=== PATIENT | female | born 1985 | race Caucasian/White ===

== ENCOUNTER 2018-06-07 05:26 | Inpatient (IN) | payer MEDICAID, SELFPAY ==
[2018-06-07 05:50] VITALS: BMI 27.6
[2018-06-07] MEDS: Lactated Ringer's 1,000 ML IV SCH ×3 (06:30→18:27)
[2018-06-07 06:42] LABS: BASO % 1.2 % (0.0-2.0); HEMOGLOBIN 11.7 g/dL (12.0-16.0); LYMPH # 1.2 K/uL (1.0-4.3); LYMPH % 38.8 % (20.0-40.0); MEAN CELL VOLUME 80.5 fl (81.0-99.0); MEAN CORPUSCULAR HEMOGLOBIN 26.8 pg (27.0-31.0); MEAN CORPUSCULAR HGB CONC 33.3 g/dL (33.0-37.0); MEAN PLATELET VOLUME 9.4 fl (7.2-11.7); MONO # 0.3 K/uL (0.0-0.8); MONO % 8.6 % (0.0-10.0); NEUT # 1.6 K/uL (1.8-7.0); NEUT % 50.4 % (50.0-75.0); NRBC % 0.1 % (0.0-0.0); RBC 4.35 Mil/uL (3.80-5.20); RED CELL DISTRIBUTION WIDTH 14.5 % (11.5-14.5); WHITE BLOOD COUNT 3.2 K/uL (4.8-10.8)
[2018-06-07] MEDS ORDERED: Oxytocin 30 UNIT 30 UNITS/500 ML BAG IV ONE (07:29)
[2018-06-07] MEDS ORDERED: OXYTOCIN/0.9 % NS 20 UNIT/1,000 ML BAG IV SCH ×2 (07:30→13:42)
[2018-06-07] MEDS ORDERED: Lactated Ringer's 1,000 ML IV ONE (08:04)
[2018-06-07] MEDS ORDERED: ceFAZolin 2 GM in Sodium Chloride 0.9% 100 ML IVPB ONE (08:15)
[2018-06-07] MEDS ORDERED: ePHEDrine 50 mg/ml Inj ONE (08:56)
[2018-06-07] MEDS ORDERED: Phenylephrine 10 mg/ml Inj ONE (08:56)
[2018-06-07] MEDS ORDERED: Morphine 1 mg/ml preservative-free Inj(Duramorph) ONE (08:56)
[2018-06-07] MEDS ORDERED: Atropine 0.4 mg/ml Inj (1 mL) ONE (08:57)
--- NOTE | 2018-06-07 09:20 | OBADHP ---
Datetime: 06/07/2018 08:33 Admit Comment, IP Provider: HPI: Anna is a 33 yo with a history of a previous who pr esents today for a scheduled repeat . Her dating was obtained by an LMP of 09/06/17 with no US performed before 22 weeks for dating confirmation. First was done in [place] under general anesthesia. Only complications of the are maternal history of midline low back pain with s evere leg pain and weakness early in the that has since resolved. ROS: denies vaginal bleeding, ctx or LOF. Good movement. History G1: 2014, primary for breech presentation in [place] G2: current pregancy Ultrasounds Initial US was 03/10/18, question of imperforate anus that resolved on follow-up US. Last US 05/13 w ith cephalic presentation, EFW not reported PMH Chornic low back pain PSH Prior Social History Lives at home with her and 1 child. Denies tobacco, alcohol or drug use during the pregnan cy Family History Not significant Medications PNV Allergies NKDA OBJECTIVE See PE section labs: A+, initial HIV/RPR nonreactive, Hep B neg, GBS unknown, GTT WNL, Rubella immune Assessment/Plan: 33yo at 39.1 here for elective repeat . After initial discussion wi th the pation about anesthesia options (she had general anesthesia is [place] for her first ) she was consented for spinal anesthesia. Risks/benefits of the repeat reviewed, all questio ns answered and consent forms were signed. Monalisa Go MD OB Fellow Addendum by Dr. Best: I have evalauted the patient independently and I agree with the above Extremities - PN: Normal Abdomen - PN: Normal Lungs - PN: Normal Heart - PN: Normal HEENT - PN: Normal General - PN: Normal IP Fetus A Comments: Reactive NST with occasional variables FHR - Baseline A Provider: 155 Gestation - Est Wks by US: 39.1 Vital Signs Provider: Reviewed; Within Normal Limits IP Chief Complaint: Scheduled Section NICHD Variability Prov Fetus A: Moderate 6-25bpm NICHD Accel Fetus A IP Provider: [id number] NICHD Decel Fetus A IP Provider: Variable Dilatation, Provider: TOPHER EGRyan AdmitDate IP: 39.1 IP Adm Impression: Term, intrauterine IP Admit Plan: Admit to unit; Initiate Section protocol
--- NOTE | 2018-06-07 10:28 | OBDS ---
DELIVERY PERSONNEL Delivery Doctor: Michael Best MD Office Auditor: Nancy Tam RN Anesthesiologist: Noel Nation MD Resident: Dr. Yanez, OB Fellow MATERNAL INFORMATION Delivery Anesthesia: None Medications in Delivery: Pitocin 30 mu/500 mL LR Estimated Blood Loss (ml): 800 Placenta Cultured: No Maternal Complications: None Provider Comments: Surgeon: Dr. Best Slat Grader: Dr. Kylah Go Pre-operative Dx: Repeat , term Surgery: Repeat Post-op Dx: Same Findings: Live female infant, cephalic, 6lbs 15oz, 9/9, clear fluid, grossly nml tubes, ovaries, p lacenta, uterus Anesthesia: spinal by Dr. Nation EBL: 800mL UO: 200mL Total input: 1800mL Complications: None Condition: Stable Pathology: Placenta, cord blood LABOR SUMMARY EDC: 06/13/2018 00:00 No. Babies in Womb: 1 Attempted: No Labor Anesthesia: None LABOR INFORMATION Oxytocin: N/A Group B Beta Strep: Done, Result Unknown Antibiotics # of Doses: 1 Antibiotics Time of Last Dose: 934 Steroids Given: None Reason Steroids Not Administered: Not Applicable MEMBRANES Membranes Rupture Method: Spontaneous Rupture of Membranes: 06/07/2018 09:42 Length of Rupture (hrs): 0.00 Amniotic Fluid Color: Clear Amniotic Fluid Amount: Moderate Amniotic Fluid Odor: None STAGES OF LABOR Stage 3 hrs: 0 Stage 3 min: 1 CSECTION DELIVERY Primary Indication: Repeat Elective CSection Urgency: Elective CSection Incidence: Repeat Labor: No Labor Elective: Elective CSection Incision: Lower Uterine Transverse BABY A INFORMATION Infant Delivery Date/Time: 06/07/2018 09:42 Method of Delivery: Born in Route : No : N/A Forceps: N/A Vacuum Extraction: N/A Shoulder Dystocia : No SHOULDER DYSTOCIA BABY A Infant Delivery Date/Time: 06/07/2018 09:42 PRESENTATION/POSITION BABY A Presentation: Cephalic Cephalic Presentation: Vertex Breech Presentation: N/A PLACENTA INFORMATION BABY A Placenta Delivery Time : 06/07/2018 09:43 Placenta Method of Delivery: Expressed Placenta Status: Delivered SCORES BABY A Heart Rate 1 min: >100 bpm Resp Effort 1 min: Good Cry Reflex Irritability 1 min: Cough or Sneeze or Pulls Away Muscle Tone 1 min: Active Motion Color 1 min: Body [place], Extremities Blue Resuscitation Effort 1 min: N/A SCORE 1 MIN: 9 Heart Rate 5 min: >100 bpm Resp Effort 5 min: Good Cry Reflex Irritability 5 min: Cough or Sneeze or Pulls Away Muscle Tone 5 min: Active Motion Color 5 min: Body [place], Extremities Blue Resuscitation Effort 5 min: N/A SCORE 5 MIN: 9 INFORMATION BABY A Gestational Age at Delivery: 39.1 Gestational Status: Term Infant Outcome : Liveborn Condition : Stable Sex: Female WEIGHT/LENGTH BABY A Birthweight (gms): 3150 Weight (lb): 6 Infant Weight (oz): 15 CORD INFORMATION BABY A No. Cord Vessels: 3 Nuchal Cord : N/A Cord Blood Taken: Yes Suction: Mouth; Nose
[2018-06-07] MEDS ORDERED: Acetaminophen-Codeine 300/30 mg Tab PO PRN ×2 (10:42→13:42)
[2018-06-07] MEDS ORDERED: Oxycodone/Acetaminophen 5/325 mg Tab PO PRN (10:42)
[2018-06-07] MEDS ORDERED: Lactated Ringer's 1,000 ML IV SCH (10:45)
[2018-06-07] MEDS ORDERED: Simethicone 80 mg Chewtab PO SCH (16:00)
[2018-06-07] MEDS: Simethicone 80 mg Chewtab PO SCH ×2 (18:36→21:25)
--- NOTE | 2018-06-07 22:01 | OP ---
PROCEDURE DATE: 06/07/2018 SURGEON: Ruth Best MD TRANSACTION MANAGER: Dr. Pedro Go, OB Fellow PREOPERATIVE DIAGNOSES: 1. Previous section x1. 2. Term . POSTOPERATIVE DIAGNOSES: 1. Previous section x1. 2. Term . PROCEDURE: Repeat low-transverse section. FINDINGS: Live female , 6 pounds 15 ounces, cephalic, 9 and 9 Apgars, clear fluid. Grossly normal tubes, ovaries, placenta and uterus. ESTIMATED BLOOD LOSS: 800 mL. ANESTHESIA: Spinal. ANESTHESIOLOGIST: Lazaro Nation MD URINE OUTPUT: 200 mL. TOTAL FLUID INPUT: 800 mL. COMPLICATIONS: None. CONDITION: Stable. PATHOLOGY SPECIMENS: Placenta and cord blood. INDICATION: This is a 33-year-old G2, P1-0-0-1 at 39 plus weeks for scheduled repeat . The patient was advised the risks and benefits of procedure including risk of bleeding, infection, damage to surrounding organs such as bowel, bladder, ureter, and uterus. The patient verbalized understanding and signed informed consent. DESCRIPTION OF PROCEDURE: The patient was taken to the OR. Ancef was given preoperatively. Anesthesia was placed bilaterally. The patient was prepped and draped in a normal sterile fashion in dorsal supine position with a leftward tilt. A Pfannenstiel skin incision was made through the previous incision with a scalpel and carried through to the underlying layer of fascia with the scalpel and Bovie. The fascia was incised in the midline. The incision was extended laterally with the Bovie. We used Josette clamps to tent up the superior aspect of this incision which we dissected off the underlying pyramidalis muscles with the Bovie. In a similar fashion, we tented up the superior aspect of this incision which we dissected off the underlying rectus abdominis muscles with the Bovie. The muscles were tented up at the midline, and the peritoneum was entered with Metzenbaum scissors. The incision was extended superiorly and inferiorly with good visualization of all underlying organs. A bladder flap was created with the Metzenbaum scissors digitally. The uterine incision was incised in a transverse fashion with the scalpel. The uterine cavity was entered. Clear fluid was noted. The uterine incision was extended with bandage scissors. The was delivered in cephalic presentation atraumatically followed by shoulders and rest of the infant atraumatically. Cord was clamped and cut. Infant was handed off to awaiting pediatric team. The uterus was exteriorized. The placenta was removed manually. The uterus was cleared of all clots. The uterine incision was repaired with 0 Vicryl stitch and second imbricating layer was done with 0 Monocryl. The uterus was returned to the abdomen. Gutters were cleared of all clots. Hysterotomy site again was re-inspected and found to be hemostatic. The peritoneum was closed with 2-0 Monocryl, and the muscles were reapproximated with the same stitch. The fascia was closed with a 0 Vicryl. Small bleeders on the subcutaneous fat were cauterized with the Bovie and then reapproximated with a plain gut suture. Skin was closed with 4-0 Monocryl. Sponge, lap and needle counts were correct x4. The patient was taken to the recovery room in stable condition. There were no other complications. Ruth Best MD
[2018-06-08] MEDS: Lactated Ringer's 1,000 ML IV SCH (00:57)
[2018-06-08] MEDS: Simethicone 80 mg Chewtab PO SCH ×4 (05:52→21:21)
[2018-06-08 06:30] LABS: BASO % 0.3 % (0.0-2.0); EOS % 0.5 % (0.0-4.0); HEMOGLOBIN 11.4 g/dL (12.0-16.0); LYMPH # 0.8 K/uL (1.0-4.3); LYMPH % 11.7 % (20.0-40.0); MEAN CELL VOLUME 80.4 fl (81.0-99.0); MEAN CORPUSCULAR HGB CONC 33.6 g/dL (33.0-37.0); MEAN PLATELET VOLUME 9.5 fl (7.2-11.7); MONO # 0.4 K/uL (0.0-0.8); MONO % 5.7 % (0.0-10.0); NEUT # 5.9 K/uL (1.8-7.0); NEUT % 81.8 % (50.0-75.0); RBC 4.23 Mil/uL (3.80-5.20); RED CELL DISTRIBUTION WIDTH 14.1 % (11.5-14.5); WHITE BLOOD COUNT 7.2 K/uL (4.8-10.8)
[2018-06-08] MEDS: Multivitamin With Minerals Tab PO SCH (08:36)
[2018-06-08] MEDS: Oxycodone/Acetaminophen 5/325 mg Tab PO PRN ×2 (08:36→20:07)
[2018-06-08] MEDS ORDERED: Multivitamin With Minerals Tab PO SCH (09:00)
--- NOTE | 2018-06-08 13:54 | OBPPN ---
Datetime: 06/08/2018 06:20 PP Pain Prov: Within normal limits PP Nausea Prov: Denies PP Flatus Prov: No PP BM Prov: No PP Breasts Prov: Not Done PP Heart Prov: Normal PP Lungs Prov: Normal PP Abdomen/Uterus Prov: Normal PP Lochia Prov: Normal PP Vulva/Perineum Prov: Not Done PP CVA Tenderness Prov: Normal PP Extremities Prov: Normal PP C/S Incision Prov: Normal PP Progress Prov: Normal PP Impression Prov: Normal progression PP Plan Prov: Continue present management PP Progress Note Prov: Patient seen and examined at the bedside in morning. Patient lying comfortabl y in bed. States she has not been passing flatus or having BM. Tolerating PO diet. Lochia like menses. Patient without any difficulties. VSS, Afebrile Gen: NAD Lungs: CTA bilaterally CVS: RRR, S1, S2 WNL, no murmurs. Abd: ND, +BS, appropriated tenderness, fundus firm at umbilical level. Ext: No edema, negative calf tenderness. Neuro/psych: AAOx3 A/P: 33 y/o female 39.1 wk GA ppd1 s/p -Encourage ambulation -Diet as tolerated -Ibuprofen 600 mg for pain mgmt -Senakot and colace for constipation -anticipated discharge 06/10/2018 Vee Riley PGY-I OB Hospitalist on-call. On rounds, I saw and examined this patient. Agree wit PGY1 note. YUKO H/H/ Vital Signs Provider PP: Reviewed; Within Normal Limits
[2018-06-09] MEDS: Simethicone 80 mg Chewtab PO SCH ×4 (03:26→21:10)
[2018-06-09] MEDS: Multivitamin With Minerals Tab PO SCH (09:20)
--- NOTE | 2018-06-09 13:14 | OBPPN ---
Datetime: 06/09/2018 06:00 PP Pain Prov: Within normal limits PP Nausea Prov: Denies PP Flatus Prov: Yes PP BM Prov: No PP Breasts Prov: Not Done PP Heart Prov: Normal PP Lungs Prov: Normal PP Abdomen/Uterus Prov: Normal PP Lochia Prov: Normal PP Vulva/Perineum Prov: Not Done PP CVA Tenderness Prov: Normal PP Extremities Prov: Normal PP C/S Incision Prov: Normal PP Progress Prov: Normal PP Comments Phys Exam Prov: hgb 11.4 plate 127 PP Impression Prov: Normal progression PP Plan Prov: Continue present management PP Progress Note Prov: Patient seen and examined at the bedside in morning. Patient lying comfortabl y in bed. States reports passing flatus and having BM.Tolerating PO diet. Lochia like menses. Patien t without any difficulties. VSS, Afebrile Gen: NAD Lungs: CTA bilaterally CVS: RRR, S1, S2 WNL, no murmurs. Abd: ND, +BS, appropriated tenderness, fundus firm at umbilical level. incision intact. Ext: No edema, negative calf tenderness. Neuro/psych: AAOx3 A/P: 33 y/o female 39.1 wk GA ppd2 s/p -Encourage ambulation -Diet as tolerated -Ibuprofen 600 mg for pain mgmt -Senakot and colace for constipation -anticipated discharge 06/10/2018 Vee Riley PGY-I OB attending addendum: Patient seen and examined by me. She denies bowel movement. Plan Rx Senokot S Ambulate. Vital Signs Provider PP: Reviewed
[2018-06-09] MEDS ORDERED: Docusate-Senna 50 mg-8.6 mg Tab PO SCH (22:00)
[2018-06-10] MEDS: Simethicone 80 mg Chewtab PO SCH ×2 (04:21→09:55)
[2018-06-10] MEDS: Multivitamin With Minerals Tab PO SCH (09:55)
--- NOTE | 2018-06-10 10:48 | OBDCSUM ---
Datetime: 06/10/2018 10:24 Discharged to, Provider: Home Follow up at, Provider: OB Disch Instr Activity: Normal activity; May be up to bathroom; May be up for meals; May Shower Disch Instr Diet: Regular Discharge Instructions, Provider: Routine instructions given Discharge Time: 06/10/2018 10:25 Follow up in weeks, Provider: 1-2 weeks incision check , 4-6 weeks for post check Disch Referrals: None Contraception discussed, Prov: Yes Disch Activity Restrictions: Minimize stair-climbing; No sexual activity; Nothing in vagina - Interc ourse, tampons, douche Discharge Comment, Provider: Attending addendum: I saw and examined the patient myself this morning at bedside. I reviewed the resident note above and agree with findings and management. Contraception after Delivery: Foam/Condoms Datetime: 06/09/2018 23:28 Discharged to, Provider: Home Follow up at, Provider: [facility] Disch Instr Diet: Regular Discharge Instructions, Provider: Routine instructions given Discharge Diagnosis, Provider: Term Delivered Follow up in weeks, Provider: 4-6 weeks Disch Referrals: None Contraception discussed, Prov: Yes Disch Activity Restrictions: No lifting; No sexual activity; Nothing in vagina - [place], tampon s, douche Discharge Comment, Provider: DOA: 06/07/2018 EGA: 39.1 Dx: Term intrauterine , scheduled repeat Term 33 y/o f presented at 39.1 weeks GA for scheduled repeat L_D summary: Repeat , EBL: 800mL. No complications. DOL: 06/07/18 9:42 06/06 Weight 3150 No serious complications during PP/Post op Lochia like menses, mild pain, controllled w/ rx Rubella Immune, tdab unknown Blood type A+ CBC pp H/H 11.4/34.0 Discharge date 06/10/2018 Time: 12:40 Discharge instructions: -encourage -ibuprofen for pain PRN -Senokot 17.2mg qHs for constipation -ambulate as tolerated -patient scheduled for follow up w/ [facility] in 4-6 weeks Vee Riley PGY-I Contraception after Delivery: Not Planning to Use
--- NOTE | 2018-06-10 10:48 | OBPPN ---
Datetime: 06/10/2018 05:00 PP Pain Prov: Within normal limits PP Nausea Prov: Denies PP Flatus Prov: Yes PP BM Prov: Yes PP Breasts Prov: Not Done PP Heart Prov: Normal PP Lungs Prov: Normal PP Abdomen/Uterus Prov: Normal PP Lochia Prov: Normal PP Vulva/Perineum Prov: Not Done PP CVA Tenderness Prov: Normal PP Extremities Prov: Normal PP C/S Incision Prov: Normal PP Progress Prov: Normal PP Impression Prov: Normal progression PP Plan Prov: Continue present management; Discharge PP Progress Note Prov: Patient seen and examined at the bedside in morning. Patient lying comfortabl y in bed. States reports passing flatus and having BM.Tolerating PO diet. Lochia like menses. Patien t without any difficulties. VSS, Afebrile Gen: NAD Lungs: CTA bilaterally CVS: RRR, S1, S2 WNL, no murmurs. Abd: ND, +BS, appropriated tenderness, fundus firm at umbilical level. incision intact. Ext: No edema, negative calf tenderness. Neuro/psych: AAOx3 A/P: 33 y/o female 39.1 wk GA ppd3 s/p -Encourage ambulation -Social service consulted as patient scored high on depression scale -Diet as tolerated -Ibuprofen 600 mg for pain mgmt -Senakot for constipation -anticipated discharge today Vee Riley PGY-I Attending addendum: I saw and examined the patient myself this morning at bedside. I reviewed the resident note above and agree with findings and management. DC home today. Vital Signs Provider PP: Reviewed; Within Normal Limits
[2018-06-11 03:15] VITALS: BP 93/56; PULSE 93; RESP 20; TEMP 97.8; O2SAT 99
== END 2018-06-10 15:00 | disposition home or self-care (01) | DRG 371 ==
LOC: H.EROB2 05:26 → H.L&D 05:50 → H.OB/GYN 13:20
PROVIDERS: ADMIT Obstetrics & Gynecology; ATTEND Obstetrics & Gynecology
PROC: 10D00Z1 Extraction of Products of Conception, Low, Open Approach (ICD-10-PCS; principal; 2018-06-07)
DX: O34.211 Maternal care for low transverse scar from previous cesarean delivery (principal); Z37.0 Single live birth; Z3A.39 39 weeks gestation of pregnancy; K59.00 Constipation, unspecified; G89.29 Other chronic pain; M54.5 Low back pain